=== PATIENT | male | born 1990 | race Caucasian/White ===

== ENCOUNTER 2025-03-07 16:46 | Emergency (ER) | payer OTHER ==
[~2025-03-07] VITALS: Ht 175.3 cm; Wt 72.6 kg
[2025-03-07 16:52] VITALS: BP 136/97; O2SAT 94
[2025-03-07] MEDS ORDERED: ALBUTEROL SULFATE 8 GM HFA.AER.AD ONE (17:25)
[2025-03-07] MEDS: ALBUTEROL SULFATE 8 GM HFA.AER.AD IH ONE (17:26)
[2025-03-07] MEDS ORDERED: BUDE10.2 INH (17:29)
[2025-03-07] MEDS ORDERED: ALBU18HF2 INH (17:29)
[2025-03-07] MEDS ORDERED: ALBU2.5V38 NEB (17:29)
== END 2025-03-07 17:34 | disposition home or self-care (01) ==
LOC: ER 17:33
DX: J45.909 Unspecified asthma, uncomplicated (principal); Z76.0 Encounter for issue of repeat prescription; Z88.0 Allergy status to penicillin
CPT/HCPCS: A4606; A4663; J3535